=== PATIENT | female | born 1990 | race Caucasian/White ===

== ENCOUNTER 2021-07-15 16:51 | Inpatient (IN) | payer OTHER ==
[2021-07-15 19:01] VITALS: BMI 20.2
[2021-07-15] MEDS ORDERED: METHOCARBAMOL 500 MG TABLET PO PRN (21:40)
[2021-07-15] MEDS ORDERED: MAGNESIUM HYDROX 2400MG/30ML ORAL SUSPENSION 30 ML CUP PO PRN (21:40)
[2021-07-15] MEDS ORDERED: MAG HYDROX/AL HYDROX/SIMETH 30 ML UNIT-DOSE CUP PO PRN (21:40)
[2021-07-15] MEDS ORDERED: BISMUTH SUBSALICYLATE 524 MG/30 ML PO PRN (21:40)
[2021-07-15] MEDS ORDERED: MAGNESIUM CITRATE 300 ML BOTTLE PO PRN (21:40)
[2021-07-15] MEDS ORDERED: NICOTINE POLACRILEX 2 MG GUM BUC PRN (21:40)
[2021-07-15] MEDS ORDERED: LOPERAMIDE HCL 2 MG CAPSULE PO PRN (21:40)
[2021-07-15] MEDS ORDERED: ACETAMINOPHEN 325 MG TABLET (FP) PO PRN ×2 (21:40)
[2021-07-15] MEDS ORDERED: BENZOCAINE/MENTHOL (CHLORASEPTIC ) LOZENGE MM PRN (21:40)
[2021-07-15] MEDS ORDERED: IBUPROFEN 400 MG TABLET (FP) PO PRN (21:40)
[2021-07-15] MEDS ORDERED: DICYCLOMINE HCL 10 MG CAPSULE PO PRN (21:40)
[2021-07-15] MEDS ORDERED: methaDONE HCL 10 MG TABLET (FOR DETOX USE ONLY) PO ONE (21:44)
[2021-07-15] MEDS ORDERED: cloNIDine HCL 0.1 MG TABLET PO PRN (21:44)
[2021-07-15] MEDS ORDERED: methaDONE HCL 10 MG TABLET (FOR DETOX USE ONLY) ONE (23:53)
[2021-07-15] MEDS: MELATONIN 5 MG TABLETS PO SCH (23:56)
[2021-07-15] MEDS: THIAMINE HCL 100 MG TABLET (FP) PO SCH (23:57)
[2021-07-16] MEDS ORDERED: methaDONE HCL 10 MG TABLET (FOR DETOX USE ONLY) ONE (09:40)
[2021-07-16] MEDS: ONDANSETRON *ODT* 4 MG TABLET SL PRN ×2 (10:32→23:03)
[2021-07-16] MEDS: NICOTINE 14 MG/24 HOURS TOPICAL PATCH TD SCH (11:38)
[2021-07-16] MEDS: PRENATAL VITAMINS W/ FOLIC ACID TABLET (FP) PO SCH (11:38)
[2021-07-16 11:49] LABS: HEMATOCRIT 37.8 % (32.4-45.2); HEMOGLOBIN 12.3 GM/dL (10.7-15.3); MCH 26.5 pg (25.7-33.7); MCHC 32.7 g/dl (32.0-36.0); PLATELET COUNT 320 10^3/uL (134-434); RBC 4.66 M/mm3 (3.60-5.2); RDW 16.5 % (11.6-15.6); WHITE BLOOD COUNT 10.5 K/mm3 (4.0-10.0)
[2021-07-16 12:14] LABS: ALBUMIN 3.6 g/dl (3.4-5.0); CALCIUM 8.9 mg/dL (8.5-10.1)
[2021-07-16 12:15] LABS: BLOOD UREA NITROGEN 8.9 mg/dL (7-18)
[2021-07-16 12:18] LABS: CREATININE 0.5 mg/dL (0.55-1.3); TOT PROT 6.9 g/dl (6.4-8.2)
[2021-07-16 12:19] LABS: BILIRUBIN,TOTAL 0.4 mg/dL (0.2-1)
[2021-07-16] MEDS: THIAMINE HCL 100 MG TABLET (FP) PO SCH (22:49)
[2021-07-16] MEDS: MELATONIN 5 MG TABLETS PO SCH (22:49)
[2021-07-17] MEDS ORDERED: methaDONE HCL 10 MG TABLET (FOR DETOX USE ONLY) PO ONE (10:00)
[2021-07-17] MEDS: PRENATAL VITAMINS W/ FOLIC ACID TABLET (FP) PO SCH (10:19)
[2021-07-17] MEDS: NICOTINE 14 MG/24 HOURS TOPICAL PATCH TD SCH (10:21)
[2021-07-17 14:06] LABS: SARS-CoV-2 NAA Not Detected (Not Detected)
[2021-07-17] MEDS ORDERED: amLODIPine BESYLATE 5 MG TABLET (FP) PO SCH (15:30)
[2021-07-17 16:58] VITALS: BP 130/81; PULSE 80; TEMP 97.5
[2021-07-19] MEDS ORDERED: methaDONE HCL 10 MG TABLET (FOR DETOX USE ONLY) PO ONE (10:00)
== END 2021-07-17 19:14 | disposition left against medical advice (07) | DRG 770 ==
LOC: YASAS 16:51 → Y6N 22:32
PROVIDERS: ADMIT Allergy & Immunology; ATTEND Allergy & Immunology
PROC: HZ2ZZZZ Detoxification Services for Substance Abuse Treatment (ICD-10-PCS; principal; 2021-07-15)
DX: F11.23 Opioid dependence with withdrawal (principal); F14.20 Cocaine dependence, uncomplicated; F12.20 Cannabis dependence, uncomplicated; F17.210 Nicotine dependence, cigarettes, uncomplicated; R56.9 Unspecified convulsions
CPT/HCPCS: 36415; 80053; 81025; 85027; 86780; 87811; 93005; 93010; C9803-CS; Q0162; U0003; U0005